=== PATIENT | male | born 1980 | race Caucasian/White ===

== ENCOUNTER 2016-08-27 16:01 | Emergency (ER) | payer OTHER ==
[2016-08-27 16:13] VITALS: BP 106/70
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
== END 2016-08-27 19:09 | disposition home or self-care (01) ==
LOC: ED 16:01
DX: R51 Headache (principal); M25.511 Pain in right shoulder; F17.200 Nicotine dependence, unspecified, uncomplicated; F12.10 Cannabis abuse, uncomplicated; V49.40XA Driver injured in collision with unspecified motor vehicles in traffic accident, initial encounter; Y93.89 Activity, other specified; Y92.89 Other specified places as the place of occurrence of the external cause; Y99.8 Other external cause status
CPT/HCPCS: 99282